=== PATIENT | male | born 1980 | race Hispanic/Latino ===

== ENCOUNTER → 2019-04-11 | Outpatient (CLI) | payer OTHER ==
[~2019-04-11] MED LIST: [UNRECOGNIZED DRUG - REMARK]
--- NOTE | 2019-04-16 10:48 | Polysomnography ---
DATE OF STUDY: REFERRING PHYSICIAN: POLYSOMNOGRAM REPORT Patient of Dr. Sarah Beth Pryor. The patient with a history of daytime hypersomnolence, loud snoring witnessed by others. The patient is 5 feet 9 inches, 550 pounds, neck size 20.5, BMI 81.2. He was monitored using standard EEG lead montage including electrooculogram, submentalis EMG, anterior tibialis EMG, nasal and oral thermistors, ribcage and abdominal strain gauge, monitor pulse oximetry, manager monitoring. The study was abnormal. A split night study was performed. The initial portion of the study was the diagnostic, portion lasted 136 minutes. Stage 1 and 2 sleep were recorded, sleep efficiency was 78%. There were 64 obstructive apneas, 18 respiratory event related arousals. Respiratory disturbance index was 145.2 consistent with very severe obstructive sleep apnea. There was significant O2 desaturation as low as 53%. Certainly, weight reduction should be part of the patient's therapeutic program as well as examination of the nasal and oropharynx as this has not been performed recently as well as assay of thyroid function. He should be warned not to drive when left untreated. In addition to weight reduction, therapeutic options would include tracheostomy, uvulopalatopharyngoplasty with jaw advancement and nasal CPAP. Second portion of the study was a nasal CPAP titration. It was initiated at 5 cm of water pressure eventually rising to a BiPAP of 19/15 with supplemental oxygen bled in at 4 L. His hypoxia persisted. It is recommended that the patient be given home trial of BiPAP at a level of 19/15 with 4 L of oxygen bled in. A full face mask is recommended. During this study, there was persistent leak and an alternative mask is recommended which will require refitting. IMPRESSION: One of very severe obstructive sleep apnea, ameliorated with a BiPAP of 19/15 with 4 L supplemental oxygen. REM rebound was noted and there was improvement in O2 saturation as well as sleep efficiency to 94% during the titration. Thank you for this kind referral. MD JAMEEL Siddiqui/MODL /[id number]
== END ==
LOC: SLEEP 20:01
PROVIDERS: ATTEND Internal Medicine
DX: G47.33 Obstructive sleep apnea (adult) (pediatric) (principal); E66.9 Obesity, unspecified
CPT/HCPCS: 95811